=== PATIENT | male | born 1935 | race Caucasian/White ===

== ENCOUNTER → 2017-04-21 | Day surgery (SDC) | payer MEDICARE, BC ==
[~2017-04-21] MED LIST: AMARYL1 MG PO; AMLODIPINE BESYL5 MG PO; DALMANE30 MG PO; DEMADEX PO; FERRIC SULFATE1 GM PO; FISH OIL 1,0001 CAP PO; FLOMAX0.4 M1 PO; HYDROCODON-ACE1 EAC5 PO; JANUVIA PO; K-DUR20 ME1 PO; LASIX PO; LIPITOR PO; LORTAB 10/500 T1 TAB; MELATONIN3 MG PO; METAMUCIL PACKE1 PK1 PO; METOPROLOL SUC100 MG PO; MULTIPLE VITAMI1 T12 PO; MYFORTIC180 MG PO; NIASPAN1000 MG PO; PHOSPHASAL TAB1 EACH PO; PLAVIX PO; PREDNISONE PO; PROTONIX PO; RAPAMUNE1 MG PO; VITAMIN C500 M1 PO
--- NOTE | ~2017-04-21 | OR ---
Unit #: [id number] #: [id number] Patient: SARAH KERN [id number] [address] [place], [place] [address] [id number] O MR#: [id number] NAME: SARAH KERN ROOM: Date of Procedure: 04/21/2017 Admission Date: 04/21/2017 Surgeon: Shun Muro M.D. : 1935 Attending Physician: Shun Muro M.D. Primary Care Physician: Raj Caro M.D. OPERATIVE REPORT PREOPERATIVE DIAGNOSES Spondylolisthesis, spinal stenosis, degenerative disk disease, back pain, radiculopathy. POSTOPERATIVE DIAGNOSES Spondylolisthesis, spinal stenosis, degenerative disk disease, back pain, radiculopathy. PROCEDURE PERFORMED Lumbar epidural steroid injection with intravenous sedation and fluoroscopic guidance for needle localization. INDICATIONS FOR PROCEDURE The patient is an 82-year-old male with return of back greater than bilateral lower extremity pains. He was last treated in 05/2016 and 07/2016 for back and left greater than right lower extremity pain with same pathology which is a grade 1 to 2 spondylolisthesis with severe spinal stenosis at the L4-L5 level. He is not a surgical candidate. The pain has returned in the last month or so after successful responses to prior injections. Based on his history, pathology, symptomatology, and response to treatment, plan is for trial of epidural steroids today. DESCRIPTION OF PROCEDURE The patient was placed in a seated position. Standard monitors were applied. 2 mg of Versed were given for sedation and anxiolysis, which were adequate. Vital signs remained stable. Sterile prep and drape then of the lumbar area was performed. The skin then at the right of midline at the L4 level was localized with 1% lidocaine. An 18-gauge [employer] needle was then advanced via right paramedian approach and loss of resistance technique in toward the epidural space. The patient did not complain of any pain or paresthesia during needle advancement. After confirming proper positioning with fluoroscopy and radiographic contrast, 80 mg of Depo-Medrol and 4 mL of 0.125% bupivacaine were deposited. The patient tolerated the procedure otherwise well and was discharged to the recovery room in stable condition. Dictated by... Shun Muro M.D. P/modl Unit #: [id number] #: [id number] Patient: SARAH KERN TD: 04/21/2017 10:55 JOB #: [id number] OPERATIVE REPORT Page 1 of 1 X Shun Muro MD X PROCEDURE OPERATIVE NOTE
== END | disposition home or self-care (01) ==
LOC: CCSC 08:24
DX: M51.16 Intervertebral disc disorders with radiculopathy, lumbar region (principal); M43.16 Spondylolisthesis, lumbar region; M48.06 Spinal stenosis, lumbar region; E11.9 Type 2 diabetes mellitus without complications; I25.10 Atherosclerotic heart disease of native coronary artery without angina pectoris; I10 Essential (primary) hypertension; Z86.718 Personal history of other venous thrombosis and embolism; Z79.02 Long term (current) use of antithrombotics/antiplatelets; Z79.899 Other long term (current) drug therapy
CPT/HCPCS: 82947; J1040; J2250

== ENCOUNTER → 2017-05-07 | Day surgery (SDC) | payer MEDICARE, BC ==
--- NOTE | ~2017-05-07 | OR ---
Unit #: [id number] #: [id number] Patient: SARAH KERN [id number] [address] [place], [place] [address] [id number] O MR#: [id number] NAME: SARAH KERN ROOM: Date of Procedure: 05/07/2017 Admission Date: 05/07/2017 Surgeon: Shun Muro M.D. : 1935 Attending Physician: Shun Muro M.D. Referring Physician: Shun Muro M.D. Primary Care Physician: Raj Caro M.D. OPERATIVE REPORT POSTOPERATIVE DIAGNOSES 1. Back pain. 2. Radiculopathy. 3. Spinal stenosis. 4. Spondylolisthesis. 5. Degenerative disk disease. POSTOPERATIVE DIAGNOSES 1. Back pain. 2. Radiculopathy. 3. Spinal stenosis. 4. Spondylolisthesis. 5. Degenerative disk disease. PROCEDURE PERFORMED Lumbar epidural steroid injection with intravenous sedation and fluoroscopic guidance for needle localization. INDICATIONS FOR PROCEDURE The patient is an 82-year-old male, who had return of back and bilateral lower extremity pain to the previously mentioned nonsurgical pathology. She has a grade 1 to 2 spondylolisthesis at L4-L5 level with severe stenosis and degenerative disk disease at multiple levels. He has been treated with epidural steroids in the past. Last injections have given him about 8 to 9 months of improvement. 2 injections done over the last several weeks, additive significant improvement. First injection gave him significant improvement and second injection gave him injections, we will determine that in the future the pain likely recurs. DESCRIPTION OF PROCEDURE The patient was placed in a seated position. Standard monitors were applied. A 2 mg of Versed were given for sedation and anxiolysis, which were adequate. Vital signs remained stable. Sterile prep and drape then of the lumbar area was performed. The skin then to the right of midline at the L3-L4 level was localized with 1% lidocaine. An 18-gauge [employer] needle was then advanced via right paramedian approach and loss of resistance technique in toward the epidural space. The patient did not complain of pain or paresthesia during needle advancement. After confirming proper needle tip positioning with fluoroscopy and radiographic contrast, a dose of 80 mg of Depo-Medrol and 4 mL of 0.5% lidocaine were Unit #: [id number] #: [id number] Patient: SARAH KERN. The patient tolerated the procedure otherwise well and was discharged to the recovery room in stable condition. Dictated by... Johana Dwyer/marge TD: 05/08/2017 06:03 JOB #: [id number] CC: [facility] OPERATIVE REPORT Page 1 of 1 X Shun Muro MD X PROCEDURE OPERATIVE NOTE
== END | disposition home or self-care (01) ==
LOC: CCSC 08:51
DX: M51.16 Intervertebral disc disorders with radiculopathy, lumbar region (principal); M43.16 Spondylolisthesis, lumbar region; M48.06 Spinal stenosis, lumbar region; E11.9 Type 2 diabetes mellitus without complications; I25.10 Atherosclerotic heart disease of native coronary artery without angina pectoris; I10 Essential (primary) hypertension; Z86.718 Personal history of other venous thrombosis and embolism; Z79.02 Long term (current) use of antithrombotics/antiplatelets; Z79.899 Other long term (current) drug therapy
CPT/HCPCS: 82947; J1040; J2250